=== PATIENT | male | born 1990 | race Caucasian/White ===

== ENCOUNTER 2017-04-14 15:23 | Emergency (ER) | payer SELFPAY ==
[~2017-04-14] VITALS: Ht 177.8 cm; Wt 77.6 kg
[2017-04-14 15:42] VITALS: BP 132/74
--- NOTE | 2017-04-14 17:20 | NUR ---
PATIENT TO OF
--- NOTE | 2017-04-14 17:30 | NUR ---
PATIENT PRESENTED WITH SPIDER BITE TO LT. INDEX FINGER/MINIMAL SWELLING
--- NOTE | 2017-04-14 17:31 | NUR ---
GODWIN SCHMIDT ASSESSING PATIENT IN OF
[2017-04-14 18:30] VITALS: BP 121/72
--- NOTE | 2017-04-14 18:30 | NUR ---
Patient discharged with v/s stable. Written and verbal after care instructions given and explained. Patient alert, oriented and verbalized understanding of instructions. Ambulatory with steady gait. All questions addressed prior to discharge. ID band removed. Patient advised to follow up with PMD. Rx of KEFLEX,BENADRYL,VALIUM given. Patient educated on indication of medication including possible reaction and side effects. Opportunity to ask questions provided and answered.
--- NOTE | 2017-04-14 18:30 | NUR ---
LT. INDEX FINGER CLEANED WITH SALINE/BANSAID APPLIED
== END 2017-04-14 18:30 | disposition home or self-care (01) ==
LOC: MED 15:23
DX: S60.461A Insect bite (nonvenomous) of left index finger, initial encounter (principal); W57.XXXA Bitten or stung by nonvenomous insect and other nonvenomous arthropods, initial encounter; Y93.89 Activity, other specified; Y92.89 Other specified places as the place of occurrence of the external cause; Y99.8 Other external cause status
CPT/HCPCS: 90471; 90715; 99283

== ENCOUNTER 2017-08-20 18:28 | Emergency (ER) | payer SELFPAY ==
[~2017-08-20] VITALS: Ht 172.7 cm; Wt 77.1 kg
[~2017-08-20 18:28] MED LIST: CEPHALEXIN 500 MG; IBUPROFEN 800 MG; [UNRECOGNIZED DRUG - OTHER]
[2017-08-20 18:32] VITALS: BP 120/58
--- NOTE | 2017-08-20 21:25 | NUR ---
PATIENT LEFT WITHOUT BEING SEEN BY DR. Mcclure. NO FURTHER CARE PROVIDED FOR PATIENT.
== END 2017-08-20 21:25 | disposition left against medical advice (07) ==
LOC: MED 18:28
DX: M79.631 Pain in right forearm (principal); Z53.21 Procedure and treatment not carried out due to patient leaving prior to being seen by health care provider

== ENCOUNTER 2017-10-11 15:14 | Emergency (ER) | payer SELFPAY ==
[~2017-10-11] VITALS: Ht 177.8 cm; Wt 80.7 kg
[2017-10-11 15:22] VITALS: BP 124/67
--- NOTE | 2017-10-11 15:25 | NUR ---
PT AMBULATED TO CHAIR A.
--- NOTE | 2017-10-11 15:30 | NUR ---
27M BIB SELF C/O LEFT ANKLE PAIN, THROBBING, RADIATES UP LEFT CALF, 03/30 X 1 MONTH; PT STATES " I SPRAINED MY ANKLE ABOUT A MONTH AGO KICKBOXING. I'M HERE TO GET SOMETHING TO HELP WITH THE PAIN"; NO ERYTHEMA OR SWELLING NOTED TO SITE AT THIS TIME; LEFT CAP REFILL < 2 SECONDS, 3+ LEFT PEDAL PULSE NOTED, NO LOSS OF SENSATION TO LEFT FOOT AT THIS TIME;PT AA&OX4, BL LUNG SOUNDS CLEAR, RR EVEN/UNLABORED, STATES NO N/V/D AT THIS TIME; SKIN IS WARM/DRY/INTACT WITH EVEN AND STEADY GAIT; PT RESTING IN CHAIR, POSITIONED FOR COMFORT; ER MD MADE AWARE OF STATUS. WILL CONTINUE TO MONITOR.
--- NOTE | 2017-10-11 15:42 | NUR ---
PT RETURNED FROM XRAY VIA W/C ACCOMPANIED BY [facility] AT THIS TIME.
--- NOTE | 2017-10-11 16:06 | NUR ---
ER MD DR. PRICE EVALUATING PT AT THIS TIME.
[2017-10-11] MEDS ORDERED: HYDROcodone/APAP 10/325 MG 1 TAB TAB PO ONE (16:10)
[2017-10-11] MEDS ORDERED: IBUPROFEN 600 MG TAB PO ONE (16:10)
[2017-10-11 16:41] VITALS: BP 124/82
--- NOTE | 2017-10-11 16:41 | NUR ---
Patient discharged with v/s stable. Written and verbal after care instructions given and explained. Patient alert, oriented and verbalized understanding of instructions. Ambulatory with steady gait. All questions addressed prior to discharge. ID band removed. Patient advised to follow up with PMD. Rx of NORCO 10MG-325MG TAB given. Patient educated on indication of medication including possible reaction and side effects. Opportunity to ask questions provided and answered.
== END 2017-10-11 16:41 | disposition home or self-care (01) ==
LOC: MED 15:14
DX: S93.402A Sprain of unspecified ligament of left ankle, initial encounter (principal); X58.XXXA Exposure to other specified factors, initial encounter; Y93.89 Activity, other specified; Y92.89 Other specified places as the place of occurrence of the external cause; Y99.8 Other external cause status
CPT/HCPCS: 73610; 99284

== ENCOUNTER 2018-01-25 08:01 | Emergency (ER) | payer SELFPAY ==
[~2018-01-25] VITALS: Ht 177.8 cm; Wt 77.1 kg
--- NOTE | 2018-01-25 08:24 | NUR ---
PT AMBULATES TO BED 4
--- NOTE | 2018-01-25 08:25 | NUR ---
28Y/M BIB SELF C/O CHRONIC LOWER BACK PAIN , EXACERBATED 3 DAYS AGO, AMBULATORY WITH SLOW GUARDED WALK. PT DENIES INCONTINENCE, ADDS HE IS A [employer] FOR [employer] [facility] [facility] [place]. DENIES N/V/D; SKIN IS PINK/WARM/DRY; AAOX4 WITH EVEN AND STEADY GAIT; PATIENT STATES PAIN OF 8/10 AT THIS TIME; VSS; PATIENT POSITIONED FOR COMFORT; HOB ELEVATED; BEDRAILS UP X1; BED DOWN. ER MD MADE AWARE OF PT STATUS.
[2018-01-25 08:28] VITALS: BP 117/88
--- NOTE | 2018-01-25 09:28 | NUR ---
Patient being evaluated by physician at bedside.
--- NOTE | 2018-01-25 10:14 | NUR ---
Patient discharged with v/s stable. Written and verbal after care instructions given and explained. Patient alert, oriented and verbalized understanding of instructions. Ambulatory with steady gait. All questions addressed prior to discharge. ID band removed. Patient advised to follow up with PMD. Rx of NAPROSYN, NORCO,AND FLEXERIL given. Patient educated on indication of medication including possible reaction and side effects. Opportunity to ask questions provided and answered.
[2018-01-25 10:15] VITALS: BP 115/85
== END 2018-01-25 10:14 | disposition home or self-care (01) ==
LOC: MED 08:01
DX: M54.42 Lumbago with sciatica, left side (principal); M79.7 Fibromyalgia
CPT/HCPCS: 99283

== ENCOUNTER 2018-06-23 06:45 | Emergency (ER) | payer MEDICAID ==
[~2018-06-23] VITALS: Ht 175.3 cm; Wt 79.4 kg
[2018-06-23 06:50] VITALS: BP 132/82
--- NOTE | 2018-06-23 06:50 | NUR ---
PT AMBULATORY TO ER BED 8
--- NOTE | 2018-06-23 07:10 | NUR ---
28/M BIB SELF C/O LEFT KNEE PAIN RADIATING DOWN LEG FOR 3 DAYS S/P "RUNNING AND WORKING OUT". PATIENT STATES PAIN OF 8/10 AT THIS TIME. PATIENT POSITIONED FOR COMFORT; HOB ELEVATED; BEDRAILS UP X2; BED DOWN. ER MD MADE AWARE OF PT STATUS.
--- NOTE | 2018-06-23 07:11 | NUR ---
Patient being evaluated by physician at bedside.
[2018-06-23 07:36] VITALS: BP 132/82
== END 2018-06-23 07:36 | disposition home or self-care (01) ==
LOC: MED 06:45
DX: G89.29 Other chronic pain (principal); M25.562 Pain in left knee; M25.559 Pain in unspecified hip; Z79.899 Other long term (current) drug therapy; Z79.1 Long term (current) use of non-steroidal anti-inflammatories (NSAID); Z79.2 Long term (current) use of antibiotics
CPT/HCPCS: 99283

== ENCOUNTER 2018-10-23 00:32 | Emergency (ER) | payer MEDICAID ==
[~2018-10-23] VITALS: Ht 177.8 cm; Wt 76.2 kg
[2018-10-23 00:43] VITALS: BP 122/70
--- NOTE | 2018-10-23 00:58 | NUR ---
PT C/O JOINT PAIN FROM HIPS TO ANKLE,8/10, SHARP PAIN, RADIATES FORM HIPS TO ANKLES,NO REDNESS OR SWELLING, NO PREVIOUS MEDICATION TAKEN. HR 72, BP 122/70, RR 14, O2 98%, TEMP 98.4 F. BED IN LOW POSITION, SIDE RAIL UP X 1, HOB ELEVATED. PT WAITING TO BE EVALUATED BY ER MD, WILL CONTINUE TO MONITOR.
[2018-10-23] MEDS ORDERED: HYDROcodone/APAP 5/325 MG 1 TAB TAB PO ONE (01:40)
[2018-10-23] MEDS ORDERED: KETOROLAC 30 MG/ML VIAL IM ONE (01:40)
--- NOTE | 2018-10-23 02:01 | NUR ---
PATIENT PAIN LEVEL 8/10, TORADOL AND NORCO ADMINISTERED, NO ADVERSE REACTION TO THE MEDICATION AND PAIN LEVEL 3/10. WILL CONTINUE TO MONITOR.
--- NOTE | 2018-10-23 02:28 | NUR ---
PATIENT SHOWS NO SIGNS OF DISTRESS CAUSED BY PAIN, PATIENT DC BY DR. BROWN, REEVALUATED PAIN AND CURRENTLY 09/27, VSS, PT GIVEN RX OF NORCO AND NAPROSYN, PT TAUGHT ABOUT DX AND TX AND ALL QUESTIONS ANSWERED. PATIENT ABLE TO AMBULATE. INFORMED TO FOLLOW UP WITH PRIMARY PHYSICIAN.
[2018-10-23 03:02] VITALS: BP 132/74
== END 2018-10-23 02:28 | disposition home or self-care (01) ==
LOC: MED 00:32
DX: M25.552 Pain in left hip (principal); M25.551 Pain in right hip; M25.572 Pain in left ankle and joints of left foot; M25.571 Pain in right ankle and joints of right foot; M25.562 Pain in left knee; M25.561 Pain in right knee; Z79.899 Other long term (current) drug therapy
CPT/HCPCS: 72170; 96372; 99283; J1885; Q0092